=== PATIENT | female | born 1960 | race Caucasian/White ===

== ENCOUNTER 2017-07-05 12:50 | Emergency (ER) | payer OTHER ==
[~2017-07-05] VITALS: Ht 152.4 cm; Wt 44.0 kg
[2017-07-05] MEDS ORDERED: TETANUS, DIPHTHERIA, PERTUSSIS VAC/PF 0.5ML (>7YR OLD) IM ONE (16:30)
[2017-07-05] MEDS ORDERED: LIDOCAINE HCL 1% 20ML VIAL (Pyxis) INJ MC ONE (16:30)
[2017-07-05] MEDS ORDERED: IBUPROFEN 600MG TABLET PO ONE (16:30)
[2017-07-05] MEDS ORDERED: BACITRACIN ZINC OINT UDPKT TOP ONE (16:30)
[2017-07-05 17:11] VITALS: BP 148/84
== END 2017-07-05 19:02 | disposition home or self-care (01) ==
LOC: ER 12:57
DX: S01.01XA Laceration without foreign body of scalp, initial encounter (principal); S19.9XXA Unspecified injury of neck, initial encounter; Z88.2 Allergy status to sulfonamides; W19.XXXA Unspecified fall, initial encounter; Y93.89 Activity, other specified; Y92.89 Other specified places as the place of occurrence of the external cause; Y99.8 Other external cause status
CPT/HCPCS: 12001; 70450; 72125; 73030; 73521; 90471; 90715; 99284; J3490; X7700; Z7610; L0172